=== PATIENT | female | born 1950 | race Asian ===

== ENCOUNTER 2017-05-30 15:29 | Outpatient (CLI) | payer OTHER ==
--- NOTE | 2017-05-31 10:18 | Mammography Report ---
BILATERAL SCREENING MAMMOGRAM: 05/30/2017 COMPARISON: Mammogram 12/04/2015. INDICATION: Screening. TECHNIQUE: Bilateral CC and MLO breast views. FINDINGS: The breast parenchyma is extremely dense, which may limit the sensitivity of mammography. There are postoperative changes of the left breast. No dominant mass, architectural distortion or concerning cluster of microcalcifications are seen. IMPRESSION: 1. BI-RADS CATEGORY 2. BENIGN FINDINGS. 2. RECOMMEND ANNUAL SCREENING MAMMOGRAM. STANDARD QUALIFYING STATEMENTS: 1. This examination was reviewed with the aid of Computer-Aided Detection (CAD) . 2. A negative or benign imaging report should not delay biopsy if clinically suspicious findings are present. Consider surgical consultation if warranted. More than 5 % of cancers are not identified by imaging. 3. Dense breasts may obscure an underlying neoplasm. TD: 05/31/2017 10:17 GUSTAVO
== END 2017-05-30 15:30 | disposition home or self-care (01) ==
LOC: DI.N 15:29
PROVIDERS: ATTEND Family Medicine
DX: Z12.31 Encounter for screening mammogram for malignant neoplasm of breast (principal); Z85.3 Personal history of malignant neoplasm of breast
CPT/HCPCS: 77067

== ENCOUNTER 2019-05-08 15:40 | Outpatient (CLI) | payer OTHER ==
--- NOTE | 2019-05-09 10:55 | Mammography Report ---
Reason: ROUTINE MAMMO Procedure Date: 05/08/2019 Accession Number: [id number] / [id number] Procedure: [facility] - Screening Mammo w/Abhi CPT Code: Final Report FULL RESULT: EXAM: Screening Mammo w/Abhi DATE: 05/08/2019 4:12 PM CLINICAL HISTORY: Screening encounter. Personal history of breast cancer status post lumpectomy in 1995 with chemoradiation. TECHNIQUE: (B) - Bilateral CC and MLO views were obtained. COMPARISON: 05/30/2017 through 08/16/2006. PARENCHYMAL PATTERN: (D) - The breast(s) demonstrate(s) heterogeneously dense fibroglandular parenchyma. FINDINGS: Posttreatment changes in the left breast are stable. There are no suspicious masses, calcifications, or areas of distortion. IMPRESSION: Benign findings. BI-RADS category 2. RECOMMENDATION: (ANNUAL) - Recommend routine annual screening mammography. BI-RADS CATEGORY: (2) - Benign Findings. STANDARD QUALIFYING STATEMENTS: 1. This examination was not reviewed with the aid of Computer-Aided Detection (CAD). 2. A negative or benign imaging report should not preclude biopsy if clinically suspicious findings are present. 3. Dense breasts may obscure an underlying neoplasm. 4. This examination was reviewed with the aid of 3D breast imaging (tomosynthesis).
== END 2019-05-08 15:41 | disposition home or self-care (01) ==
LOC: DI.N 15:40
PROVIDERS: ATTEND Family Medicine
DX: Z12.31 Encounter for screening mammogram for malignant neoplasm of breast (principal); Z85.3 Personal history of malignant neoplasm of breast; Z92.21 Personal history of antineoplastic chemotherapy; Z92.3 Personal history of irradiation
CPT/HCPCS: 77063; 77067

== ENCOUNTER 2020-05-06 13:01 | Outpatient (CLI) | payer OTHER ==
--- NOTE | 2020-05-07 06:25 | Mammography Report ---
BILATERAL DIGITAL SCREENING MAMMOGRAM 3D/2D: 05/06/2020 CLINICAL: Routine screening. Personal history of left breast cancer. Comparison is made to exams dated: 05/08/2019 mammogram, 05/30/2017 mammogram, 11/27/2015 mammogram, and 04/06/2015 mammogram - [facility]. The tissue of both breasts is heterogeneously d ense. This may lower the sensitivity of mammography. There are benign post operative findings in the left breast. No significant masses, calcifications, or other findings are seen in either breast. There has been no significant interval change. IMPRESSION: BENIGN There is no mammographic evidence of malignancy. A 1 year screening mammogram is recommended. This exam was interpreted at Station ID: [id number]. NOTE: For mammograms, a report in lay terms will be sent to the patient. Approximately 15% of breast malignancies will not be visualized mammographically. In the management of a palpable breast mass, a negative mammogram must not discourage biopsy of a clinically suspicious lesion. Electronically Signed By: Arnaldo chávez/marielena:05/06/2020 16:05:02 ACR BI-RADS Category 2: Benign Finding(s) 3342F PARENCHYMAL PATTERN: (D) - The breast(s) demonstrate(s) heterogeneously dense fibroglandular donnell enriquez. BI-RADS CATEGORY: (2) - 2 RECOMMENDATION: (ANNUAL) - Recommend routine annual screening mammography. [id number] 1 year screening LATERALITY: (B)
== END 2020-05-06 13:02 | disposition home or self-care (01) ==
LOC: DI.N 13:01
PROVIDERS: ATTEND Family Medicine
DX: Z12.31 Encounter for screening mammogram for malignant neoplasm of breast (principal); Z08 Encounter for follow-up examination after completed treatment for malignant neoplasm; Z85.3 Personal history of malignant neoplasm of breast

== ENCOUNTER 2022-03-28 12:43 | Outpatient (CLI) | payer OTHER ==
--- NOTE | 2022-03-29 10:30 | Mammography Report ---
BILATERAL DIGITAL SCREENING MAMMOGRAM 3D/2D: 03/28/2022 CLINICAL: Routine screening. Personal history of left breast cancer. Comparison is made to exams dated: 05/06/2020 mammogram, 05/08/2019 mammogram, 05/30/2017 mammogram, 11/27/2015 mammogram, 04/06/2015 mammogram, and 11/12/2013 mammogram - [facility]. Both breasts are heterogeneously dense, which may obscure small masses (category c / 51-75% glandular tissue). There are benign post operative findings in the left breast. No significant masses, calcifications, or other findings are seen in either breast. There has been no significant interval change. IMPRESSION: BENIGN There is no mammographic evidence of malignancy. A 1 year screening mammogram is recommended. This exam was interpreted at Station ID: [id number]. NOTE: For mammograms, a report in lay terms will be sent to the patient. Approximately 15% of breast malignancies will not be visualized mammographically. In the management of a palpable breast mass, a negative mammogram must not discourage biopsy of a clinically suspicious lesion. Electronically Signed By: Rubén pandey/penrad:03/28/2022 16:02:35 ACR BI-RADS Category 2: Benign Finding(s) 3342F PARENCHYMAL PATTERN: (D) - The breast(s) demonstrate(s) heterogeneously dense fibroglandular parmilany ma. BI-RADS CATEGORY: (2) - 2 RECOMMENDATION: (ANNUAL) - Recommend routine annual screening mammography. [id number] 1 year screening LATERALITY: (B)
== END 2022-03-28 12:44 | disposition home or self-care (01) ==
LOC: DI.N 12:43
PROVIDERS: ATTEND Family Medicine
DX: Z12.31 Encounter for screening mammogram for malignant neoplasm of breast (principal); Z85.3 Personal history of malignant neoplasm of breast